=== PATIENT | male | born 1935 | race Caucasian/White ===

== ENCOUNTER → 2017-01-26 | Outpatient (CLI) | payer MEDICARE, OTHER ==
[2017-01-26 10:39] LABS: HEMATOCRIT 41.3 % (37.9-51.0); HEMOGLOBIN 13.8 g/dL (13.5-17.0); HGB HCT DIFFERENCE 0.1; MEAN CORPUSCULAR HEMOGLOBIN 30.2 pg (27.0-33.4); MEAN CORPUSCULAR HGB CONC 33.4 g/dL (32.0-36.0); MEAN CORPUSCULAR VOLUME 90 fl (80-97); RED BLOOD COUNT 4.56 10^6/uL (4.35-5.55); RED CELL DISTRIBUTION WIDTH 13.8 % (11.5-14.0); WHITE BLOOD COUNT 5.6 10^3/uL (4.0-10.5)
[2017-01-26 11:03] LABS: ANION GAP 14 (5-19); BLOOD UREA NITROGEN 13 mg/dL (7-20); CALCIUM 9.3 mg/dL (8.4-10.2); CARBON DIOXIDE 26 mmol/L (22-30); CHLORIDE 103 mmol/L (98-107); CREATININE RESULT 1.15 mg/dL (0.52-1.25); GLUCOSE 94 mg/dL (75-110); POTASSIUM 3.9 mmol/L (3.6-5.0); SODIUM 142.6 mmol/L (137-145)
[2017-01-27 11:02] LABS: APPEARANCE,URINE CLEAR; BILIRUBIN,URINE NEGATIVE (NEGATIVE); GLUCOSE, URINE NEGATIVE (NEGATIVE); KETONES,URINE NEGATIVE (NEGATIVE); LEUKOCYTE ESTERASE,URINE NEGATIVE (NEGATIVE); NITRITE,URINE NEGATIVE (NEGATIVE); PROTEIN,URINE NEGATIVE (NEGATIVE); UROBILINOGEN,URINE NEGATIVE mg/dL (<2.0)
== END ==
LOC: OD 09:35
PROVIDERS: ATTEND Internal Medicine
DX: E03.9 Hypothyroidism, unspecified (principal); N18.3 Chronic kidney disease, stage 3 (moderate)
CPT/HCPCS: 36415; 80048; 81001; 84443; 85027

== ENCOUNTER → 2017-06-16 | Outpatient (CLI) | payer MEDICARE, OTHER | LOC: OD 08:32 | PROVIDERS: ATTEND Internal Medicine | DX: E03.9 Hypothyroidism, unspecified (principal) | CPT/HCPCS: 36415; 84443 ==

== ENCOUNTER → 2018-01-25 | Outpatient (CLI) | payer MEDICARE, OTHER ==
[2018-01-25 09:19] LABS: HEMATOCRIT 40.1 % (37.9-51.0); HEMOGLOBIN 13.7 g/dL (13.5-17.0); MEAN CORPUSCULAR HEMOGLOBIN 31.4 pg (27.0-33.4); MEAN CORPUSCULAR VOLUME 92 fl (80-97); PLATELET COUNT 194 10^3/uL (150-450); RED BLOOD COUNT 4.36 10^6/uL (4.35-5.55); RED CELL DISTRIBUTION WIDTH 13.6 % (11.5-14.0)
[2018-01-25 09:37] LABS: ANION GAP 10 (5-19); BLOOD UREA NITROGEN 18 mg/dL (7-20); CALCIUM 9.1 mg/dL (8.4-10.2); CARBON DIOXIDE 31 mmol/L (22-30); CHLORIDE 103 mmol/L (98-107); GLUCOSE 101 mg/dL (75-110); POTASSIUM 4.1 mmol/L (3.6-5.0); SODIUM 143.9 mmol/L (137-145)
== END ==
LOC: OD 08:49
PROVIDERS: ATTEND Internal Medicine Nephrology
DX: I12.9 Hypertensive chronic kidney disease with stage 1 through stage 4 chronic kidney disease, or unspecified chronic kidney disease (principal); N18.3 Chronic kidney disease, stage 3 (moderate)
CPT/HCPCS: 36415; 80048; 85027

== ENCOUNTER → 2018-04-16 | Outpatient (CLI) | payer MEDICARE, OTHER ==
[2018-04-16 11:15] LABS: ABSOLUTE EOSINOPHILS # (AUTO) 0.1 10^3/uL (0.0-0.6); ABSOLUTE LYMPHOCYTES (AUTO) 1.3 10^3/uL (0.5-4.7); ABSOLUTE NEUT (AUTO) 7.6 10^3/uL (1.7-8.2); BASOPHILS % (AUTO) 0.3 % (0-2); EOSINOPHILS % (AUTO) 0.8 % (0-6); HEMATOCRIT 39.5 % (37.9-51.0); HEMOGLOBIN 13.4 g/dL (13.5-17.0); LYMPHOCYTES % (AUTO) 12.6 % (13-45); MEAN CORPUSCULAR HEMOGLOBIN 31.5 pg (27.0-33.4); MEAN CORPUSCULAR VOLUME 92 fl (80-97); MONOCYTES % (AUTO) 9.7 % (3-13); PLATELET COUNT 310 10^3/uL (150-450); RED BLOOD COUNT 4.27 10^6/uL (4.35-5.55); RED CELL DISTRIBUTION WIDTH 14.1 % (11.5-14.0); SEGMENTED NEUTROPHILS % (AUTO) 76.6 % (42-78); TOTAL CELLS COUNTED % (AUTO) 100 %
[2018-04-16 11:40] LABS: ALANINE AMINOTRANSFERASE 68 U/L (21-72); ALBUMIN 3.7 g/dL (3.5-5.0); ALKALINE PHOSPHATASE 70 U/L (38-126); ANION GAP 12 (5-19); ASPARTATE AMINO TRANSFERASE 110 U/L (17-59); BILIRUBIN,DIRECT 0.5 mg/dL (0.0-0.4); BILIRUBIN,TOTAL 0.7 mg/dL (0.2-1.3); BLOOD UREA NITROGEN 37 mg/dL (7-20); CALCIUM 9.1 mg/dL (8.4-10.2); CARBON DIOXIDE 30 mmol/L (22-30); CHLORIDE 98 mmol/L (98-107); CHOLESTEROL 169.18 mg/dL (0-200); GLUCOSE 97 mg/dL (75-110); POTASSIUM 3.8 mmol/L (3.6-5.0); SODIUM 140.1 mmol/L (137-145); TOTAL PROTEIN 6.7 g/dL (6.3-8.2); TRIGLYCERIDES 80 mg/dL (<150)
[2018-04-16 11:51] LABS: DIRECT LDL 109 mg/dL (<100)
[2018-04-16 15:06] LABS: AMORPHOUS SEDIMENT,URINE TRACE /HPF; APPEARANCE,URINE CLOUDY; BILIRUBIN,URINE NEGATIVE (NEGATIVE); CALCIUM OXALATE CRYSTALS,URINE RARE /HPF; GLUCOSE, URINE NEGATIVE (NEGATIVE); KETONES,URINE TRACE mg/dL (NEGATIVE); LEUKOCYTE ESTERASE,URINE MODERATE (NEGATIVE); NITRITE,URINE NEGATIVE (NEGATIVE); PROTEIN,URINE 100 mg/dL (NEGATIVE); URINE SPECIFIC GRAVITY 1.023; UROBILINOGEN,URINE NEGATIVE mg/dL (<2.0)
[2018-04-16 15:12] LABS: COLOR,URINE YELLOW
== END ==
LOC: OD 10:02
PROVIDERS: ATTEND Internal Medicine
DX: N39.0 Urinary tract infection, site not specified (principal); R73.9 Hyperglycemia, unspecified; E78.5 Hyperlipidemia, unspecified; I10 Essential (primary) hypertension; R53.83 Other fatigue; R41.82 Altered mental status, unspecified
CPT/HCPCS: 36415; 80053; 80061; 81001; 82607; 83036; 84153; 84443; 85025; 86592; 87086; 87088; 87186

== ENCOUNTER 2018-06-21 18:00 | Emergency (ER) | payer MEDICARE ==
[2018-06-21 18:16] VITALS: BP 133/76
--- NOTE | 2018-06-21 18:47 | ER Document Report ---
ED Medical Screen (RME) - General Chief Complaint: Leg Swelling Stated Complaint: LEG SWELLING Time Seen by Provider: 06/21/18 18:44 Notes: 83 years old male with mild dementia, chronic lower leg edema on 40 mg of Lasix twice a day, presents today with bilateral increasing lower leg swelling with erythema. But no fever chills. Denies any chest pain shortness of breath. Denies any other constitutional symptoms. Bilateral lower leg-4+ pitting edema with diffuse erythema noted which is warm and tender to touch. Bilateral lower extremity venous Dopplers were negative for any DVT. Given verbal report TRAVEL OUTSIDE OF THE [place] IN LAST 30 DAYS: No - Related Data Allergies/Adverse Reactions: No Known Allergies Allergy (Verified 06/21/18 18:01) Past Medical History - Social History Chew tobacco use (# tins/day): No Drug Abuse: None - Past Medical History Cardiac Medical History: Reports: Hx Hypertension - MEDICATED Denies: Hx Heart Attack Pulmonary Medical History: Denies: Hx Asthma Neurological Medical History: Reports: Hx Migraine - cluster GRAHAM. Denies: Hx Cerebrovascular Accident, Hx Seizures Renal/ Medical History: Denies: Hx Peritoneal Dialysis GI Medical History: Reports: Hx Gastroesophageal Reflux Disease. Denies: Hx Hepatitis, Hx Hiatal Hernia, Hx Ulcer Psychiatric Medical History: Reports: Hx Depression Infectious Medical History: Denies: Hx Hepatitis Past Surgical History: Reports: Hx Orthopedic Surgery - knee. Denies: Hx Open Heart Surgery, Hx Pacemaker - Immunizations Hx Diphtheria, Pertussis, Tetanus Vaccination: No Physical Exam - Vital signs Vitals: Temp Pulse Resp BP Pulse Ox 97.8 F 81 16 133/76 H 94 06/21/18 18:12 06/21/18 18:12 06/21/18 18:12 06/21/18 18:12 06/21/18 18:12 Course - Vital Signs Vital signs: Temp Pulse Resp BP Pulse Ox 97.8 F 81 16 133/76 H 94 06/21/18 18:12 06/21/18 18:12 06/21/18 18:12 06/21/18 18:12 06/21/18 18:12 Doctor's Discharge - Discharge Referrals: CARIN MARIA MD [Primary Care Provider] - Follow up as needed
--- NOTE | 2018-06-21 20:44 | RADIOLOGY REPORT (SQ) ---
EXAM DESCRIPTION: VENOUS BILATERAL LOWER COMPLETED DATE/TIME: 06/21/2018 8:26 pm REASON FOR STUDY: Bilateral leg swelling COMPARISON: None. TECHNIQUE: Dynamic and static castro scale and color images acquired of both lower extremity venous sy stems. Selected spectral images acquired with additional compression and augmentation maneuvers. Imag es stored on PACS. LIMITATIONS: None. FINDINGS: RIGHT LEG COMMON FEMORAL AND FEMORAL: Normal phasicity, compression and augmentation. No visualized echogenic m aterial on castro scale. No defects on color images. POPLITEAL: Normal compression and augmentation. No visualized echogenic material on castro scale. No de fects on color images. CALF VESSELS: Normal compression and augmentation. No visualized echogenic material on castro scale. No defects on color image. GSV AND SSV: Normal compression. No visualized echogenic material on castro scale. No defects on color images. ANY DEEP VENOUS INSUFFICIENCY: Not evaluated. ANY EVIDENCE OF POPLITEAL CYST: No. OTHER: No other significant finding. LEFT LEG COMMON FEMORAL AND FEMORAL: Normal phasicity, compression and augmentation. No visualized echogenic m aterial on castro scale. No defects on color images. POPLITEAL: Normal compression and augmentation. No visualized echogenic material on castro scale. No de fects on color images. CALF VESSELS: Normal compression and augmentation. No visualized echogenic material on castro scale. No defects on color images. GSV AND SSV: Normal compression. No visualized echogenic material on castro scale. No defects on color images. ANY DEEP VENOUS INSUFFICIENCY: Not evaluated. ANY EVIDENCE POPLITEAL CYST: No. OTHER: No other significant finding. IMPRESSION: NO EVIDENCE DVT OR SVT IN EITHER LEG. TECHNICAL DOCUMENTATION: JOB ID: [id number] [employer]- All Rights Reserved Reading location - IP/workstation name: [email or web address]
== END 2018-06-21 22:00 | disposition left against medical advice (07) ==
LOC: ER 18:00
DX: M79.89 Other specified soft tissue disorders (principal); F03.90 Unspecified dementia, unspecified severity, without behavioral disturbance, psychotic disturbance, mood disturbance, and anxiety; I10 Essential (primary) hypertension
CPT/HCPCS: 93970; 99281

== ENCOUNTER 2018-06-24 00:01 | Emergency (ER) | payer MEDICARE ==
[2018-06-24 00:15] VITALS: BP 130/86
[2018-06-24] MEDS ORDERED: CEFAZOLIN 2 GM/D5W RTU 2 GM/50 ML RTUPB IV ONE (00:37)
[2018-06-24] MEDS ORDERED: HYDROXYZINE HCL 10 MG TABLET PO ONE (00:38)
--- NOTE | 2018-06-24 00:39 | ER Document Report ---
ED General - General Chief Complaint: Leg Swelling Stated Complaint: LEG SWELLING Time Seen by Provider: 06/24/18 00:28 Notes: Patient is a 83-year-old male with history of peripheral edema that presents to the emergency department for chief complaint of leg swelling, and itching. Patient and the patient's daughters at bedside or providing history. Patient's been having worse swelling in his lower extremities over the last few days, he does have chronic lower extremity edema, and is on Lasix 40 mg twice daily which she has been taking. He was seen in the emergency department and had duplex imaging 2 days ago, that were negative for DVT. However today we will brought him in as the itching in his lower extremities, to the point where he scratched through the skin, causing some bleeding. They did try Benadryl at home which did not improve it. He denies having any shortness of breath, chest pain, fevers, chills, night sweats, nausea, vomiting or abdominal pain. The daughter states they are concerned of a possible infection and that is why they brought him back to the emergency department. Past Medical History: Hypertension, hypothyroidism, chronic peripheral edema GERD Past Surgical History: Total knee arthroplasty Social History: Denies current tobacco, alcohol or drug use Family History: Reviewed and noncontributory for presenting illness Allergies: Reviewed, see documented allergy list. REVIEW OF SYSTEMS: Unless otherwise stated in this report the patient's positive and negative responses for review of systems for constitutional, eyes, ENT, cardiovascular, respiratory, gastrointestinal, neurological, genitourinary, musculoskeletal, and integumentary systems and related systems to the presenting problem are either as stated in the HPI or were not pertinent or were negative for the symptoms and/or complaints related to the presenting medical problem. PHYSICAL EXAMINATION: Vital signs reviewed, nursing noted reviewed. GENERAL: Elderly male, no acute distress HEAD: Atraumatic, normocephalic. EYES: Eyes appear normal, extraocular movements intact, sclera anicteric, conjunctiva are normal. ENT: nares patent, oropharynx clear without exudates. Moist mucous membranes. NECK: Normal range of motion, supple without lymphadenopathy LUNGS: Breath sounds clear to auscultation bilaterally and equal. No wheezes rales or rhonchi. HEART: Regular rate and rhythm without murmurs ABDOMEN: Soft, nontender, normoactive bowel sounds. No rebound, guarding, or rigidity. No masses appreciated. EXTREMITIES: Nontender, good range of motion, 3+ pitting edema to the proximal tibias, there is noted stasis dermatitis, there are breaks in the skin to the medial aspect of the right lower extremity, with surrounding erythema, possible early cellulitis. No tenderness to palpation. NEUROLOGICAL: No focal neurological deficits. Moves all extremities spontaneously Motor and sensory grossly intact on exam. PSYCH: Normal mood, normal affect. SKIN: Warm, Dry, normal turgor, no rashes or lesions noted on exposed skin TRAVEL OUTSIDE OF THE [place] IN LAST 30 DAYS: No - Related Data Allergies/Adverse Reactions: No Known Allergies Allergy (Verified 06/24/18 01:50) Past Medical History - Social History Smoking Status: Never Smoker Family History: Reviewed & Not Pertinent Patient has suicidal ideation: No Patient has homicidal ideation: No - Past Medical History Cardiac Medical History: Reports: Hx Hypertension - MEDICATED Denies: Hx Heart Attack Pulmonary Medical History: Denies: Hx Asthma Neurological Medical History: Reports: Hx Migraine - cluster GRAHAM. Denies: Hx Cerebrovascular Accident, Hx Seizures Renal/ Medical History: Denies: Hx Peritoneal Dialysis GI Medical History: Reports: Hx Gastroesophageal Reflux Disease. Denies: Hx Hepatitis, Hx Hiatal Hernia, Hx Ulcer Psychiatric Medical History: Reports: Hx Depression Infectious Medical History: Denies: Hx Hepatitis Past Surgical History: Reports: Hx Orthopedic Surgery - knee. Denies: Hx Open Heart Surgery, Hx Pacemaker - Immunizations Hx Diphtheria, Pertussis, Tetanus Vaccination: No Physical Exam - Vital signs Vitals: Temp Pulse Resp BP Pulse Ox 97.7 F 80 22 H 130/86 H 96 06/24/18 00:13 06/24/18 00:13 06/24/18 00:13 06/24/18 00:13 06/24/18 00:13 Course - Re-evaluation Re-evalutation: Patient seen and examined vital signs reviewed. Laboratory data and imaging were ordered as appropriate for the patient's presenting symptoms and complaint, with consideration of any critical or life threatening conditions that may be associated with their obtained history and exam as noted above. Patient was treated with IV Ancef, 2 g, and given Atarax for itching. Results were reviewed when available and demonstrated no leukocytosis, mild anemia that appears to be chronic based on prior labs, mild hyperkalemia, likely from the Lasix use, encouraged to take increased potassium in the diet The patient was re-evaluated and was still complaining of itching, we did apply NEIL hose as this will help prevent the patient from excoriating himself, and may help with some of his peripheral edema Evaluation was most consistent with peripheral edema, possible early cellulitis , will discharge the patient home on Keflex for 7 days, and Atarax for itching, as well as hydrocortisone cream to apply twice daily if needed. Results were discussed with the patient at this point, after careful consideration I feel that that patient can be discharged from the emergency department, the patient was educated treatments and reasons to return to the emergency department based on their presumed diagnosis as noted above, they were advised to followup with a primary care physician in 2-3 days. Patient was agreeable to plan of care. *Note is created using voice recognition software and may contain spelling, syntax or grammatical errors. Laboratory 06/24/18 06/24/18 00:40 00:40 WBC 8.8 RBC 3.94 L Hgb 12.1 L Hct 35.8 L MCV 91 MCH 30.8 MCHC 33.8 RDW 14.6 H Plt Count 312 Seg Neutrophils % 55.7 Lymphocytes % 18.1 Monocytes % 10.7 Eosinophils % 14.3 H Basophils % 1.2 Absolute Neutrophils 4.9 Absolute Lymphocytes 1.6 Absolute Monocytes 0.9 Absolute Eosinophils 1.3 H Absolute Basophils 0.1 Sodium 135.1 L Potassium 3.2 L Chloride 96 L Carbon Dioxide 32 H Anion Gap 7 BUN 16 Creatinine 1.08 Est GFR ( Amer) > 60 Est GFR (Non-Af Amer) > 60 Glucose 101 Calcium 8.7 - Vital Signs Vital signs: Temp Pulse Resp BP Pulse Ox 97.7 F 80 22 H 130/86 H 96 06/24/18 00:13 06/24/18 00:13 06/24/18 00:13 06/24/18 00:13 06/24/18 00:13 - Laboratory Result Diagrams: 06/24/18 00:40 06/24/18 00:40 Laboratory results interpreted by me: 06/24/18 06/24/18 00:40 00:40 RBC 3.94 L Hgb 12.1 L Hct 35.8 L RDW 14.6 H Eosinophils % 14.3 H Absolute Eosinophils 1.3 H Sodium 135.1 L Potassium 3.2 L Chloride 96 L Carbon Dioxide 32 H Discharge - Discharge Clinical Impression: Peripheral edema, Hypokalemia Cellulitis Qualifiers: Site of cellulitis: extremity Site of cellulitis of extremity: lower extremity Laterality: unspecified laterality Qualified Code(s): L03.119 - Cellulitis of unspecified part of limb Condition: Stable Disposition: HOME, SELF-CARE Instructions: Cellulitis ([facility]), Edema, Peripheral ([facility]) Additional Instructions: Please return to the emergency department if you have any worsening, or concern of your symptoms. Please return to the emergency department if you develop chest pain, difficulty breathing, severe abdominal pain, or ongoing vomiting. Please follow-up with your primary care physician in 2-3 days and any other recommended physicians. If prescribed, take all medications as directed. If you have any questions or concerns do not hesitate to return the emergency department for evaluation. Prescriptions: Cephalexin Monohydrate [Keflex 500 mg Capsule] 500 mg PO TID 7 Days #21 capsule Hydrocortisone/Oatmeal/Aloe/E [Hydrocortisone 1% Cream] 1 applic TP BID #1 tube Hydroxyzine HCl [Atarax 25 mg Tablet] 1 tab PO Q8 PRN #25 tablet PRN Reason: Referrals: CARIN MARIA MD [Primary Care Provider] - Follow up as needed
[2018-06-24 00:59] LABS: ABSOLUTE BASOPHILS # (AUTO) 0.1 10^3/uL (0.0-0.2); ABSOLUTE EOSINOPHILS # (AUTO) 1.3 10^3/uL (0.0-0.6); ABSOLUTE LYMPHOCYTES (AUTO) 1.6 10^3/uL (0.5-4.7); ABSOLUTE MONOCYTES (AUTO) 0.9 10^3/uL (0.1-1.4); ABSOLUTE NEUT (AUTO) 4.9 10^3/uL (1.7-8.2); BASOPHILS % (AUTO) 1.2 % (0-2); EOSINOPHILS % (AUTO) 14.3 % (0-6); HEMATOCRIT 35.8 % (37.9-51.0); HEMOGLOBIN 12.1 g/dL (13.5-17.0); LYMPHOCYTES % (AUTO) 18.1 % (13-45); MEAN CORPUSCULAR HEMOGLOBIN 30.8 pg (27.0-33.4); MEAN CORPUSCULAR HGB CONC 33.8 g/dL (32.0-36.0); MEAN CORPUSCULAR VOLUME 91 fl (80-97); MONOCYTES % (AUTO) 10.7 % (3-13); PLATELET COUNT 312 10^3/uL (150-450); RED BLOOD COUNT 3.94 10^6/uL (4.35-5.55); RED CELL DISTRIBUTION WIDTH 14.6 % (11.5-14.0); SEGMENTED NEUTROPHILS % (AUTO) 55.7 % (42-78); TOTAL CELLS COUNTED % (AUTO) 100 %; WHITE BLOOD COUNT 8.8 10^3/uL (4.0-10.5)
[2018-06-24 01:08] LABS: ANION GAP 7 (5-19); BLOOD UREA NITROGEN 16 mg/dL (7-20); CALCIUM 8.7 mg/dL (8.4-10.2); CARBON DIOXIDE 32 mmol/L (22-30); CHLORIDE 96 mmol/L (98-107); GLUCOSE 101 mg/dL (75-110); POTASSIUM 3.2 mmol/L (3.6-5.0); SODIUM 135.1 mmol/L (137-145)
== END 2018-06-24 01:50 | disposition home or self-care (01) ==
LOC: ER 00:01
DX: R60.0 Localized edema (principal); L03.119 Cellulitis of unspecified part of limb; E87.6 Hypokalemia; M79.89 Other specified soft tissue disorders; L29.9 Pruritus, unspecified; I10 Essential (primary) hypertension; Z79.899 Other long term (current) drug therapy
CPT/HCPCS: 99283; 96365; 36415; 85025; 80048; A9270; J0690

== ENCOUNTER 2018-07-03 13:45 | Emergency (ER) | payer MEDICARE, OTHER ==
--- NOTE | 2018-07-03 14:02 | ER Document Report ---
ED General - General Stated Complaint: IVC Time Seen by Provider: 07/03/18 14:01 Notes: Patient is a 83-year-old male that presents to the emergency department for chief complaint of argumentative behavior, and possible suicidal ideation. Patient was brought to the emergency department after apparently giving threats to burn his house down, and stating he wanted to kill himself. This is reported by family. On my history taking with the patient, he stated that he "did nothing wrong" and that he wanted to go home. He denies any complaints of pain at this time, denies any complaint of recent illness, nausea, vomiting, abdominal pain, chest pain, shortness of breath or difficulty breathing. Patient has been exhibiting signs of dementia more recently, but does not carry a formal diagnosis. Past Medical History: Hypertension, hypothyroidism, chronic peripheral edema GERD, chf Past Surgical History: Total knee arthroplasty Social History: Denies current tobacco, alcohol or drug use Family History: Reviewed and noncontributory for presenting illness Allergies: Reviewed, see documented allergy list. REVIEW OF SYSTEMS: Unless otherwise stated in this report the patient's positive and negative responses for review of systems for constitutional, eyes, ENT, cardiovascular, respiratory, gastrointestinal, neurological, genitourinary, musculoskeletal, and integumentary systems and related systems to the presenting problem are either as stated in the HPI or were not pertinent or were negative for the symptoms and/or complaints related to the presenting medical problem. PHYSICAL EXAMINATION: Vital signs reviewed, nursing noted reviewed. GENERAL: Well-appearing, well-nourished and in no acute distress. HEAD: Atraumatic, normocephalic. EYES: Eyes appear normal, extraocular movements intact, sclera anicteric, conjunctiva are normal. ENT: nares patent, oropharynx clear without exudates. Moist mucous membranes. NECK: Normal range of motion, supple without lymphadenopathy LUNGS: Breath sounds clear to auscultation bilaterally and equal. No wheezes rales or rhonchi. HEART: Regular rate and rhythm without murmurs ABDOMEN: Soft, nontender, normoactive bowel sounds. No rebound, guarding, or rigidity. No masses appreciated. EXTREMITIES: Nontender, good range of motion, no pitting or edema. NEUROLOGICAL: No focal neurological deficits. Moves all extremities spontaneously Motor and sensory grossly intact on exam. PSYCH: Normal mood, normal affect. SKIN: Warm, Dry, normal turgor, no rashes or lesions noted on exposed skin TRAVEL OUTSIDE OF THE [place] IN LAST 30 DAYS: No - Related Data Allergies/Adverse Reactions: No Known Allergies Allergy (Verified 06/24/18 01:50) Past Medical History - Social History Smoking Status: Never Smoker Family History: Reviewed & Not Pertinent - Past Medical History Cardiac Medical History: Reports: Hx Hypertension - MEDICATED Denies: Hx Heart Attack Pulmonary Medical History: Denies: Hx Asthma Neurological Medical History: Reports: Hx Migraine - cluster GRAHAM. Denies: Hx Cerebrovascular Accident, Hx Seizures Renal/ Medical History: Denies: Hx Peritoneal Dialysis GI Medical History: Reports: Hx Gastroesophageal Reflux Disease. Denies: Hx Hepatitis, Hx Hiatal Hernia, Hx Ulcer Psychiatric Medical History: Reports: Hx Depression Infectious Medical History: Denies: Hx Hepatitis Past Surgical History: Reports: Hx Orthopedic Surgery - knee. Denies: Hx Open Heart Surgery, Hx Pacemaker - Immunizations Hx Diphtheria, Pertussis, Tetanus Vaccination: No Physical Exam - Vital signs Vitals: Temp Pulse Resp BP Pulse Ox 98.2 F 95 18 127/65 H 93 07/03/18 17:44 07/03/18 17:44 07/03/18 17:44 07/03/18 17:44 07/03/18 17:44 Course - Re-evaluation Re-evalutation: Patient seen and examined, vital signs reviewed. Medical screening testing was ordered including bloodwork, EKG, and toxicology. Results of testing were reviewed. Testing demonstrated urinalysis positive for UTI, he also had a leukocytosis. Patient has been stable from a hemodynamic standpoint. We will treat the patient for urinary tract infection, with Augmentin, prior microbiology reviewed, and has grown Proteus in the past which is sensitive. This is likely contributing to the patient's encephalopathy, likely underlying dementia At this point I feel that the patient is medically cleared and can be further evaluated from a psychiatric standpoint for final disposition from the emergency department. Discussed with mental health team, and they recommended as needed risperidone twice daily as needed, Thorazine 25 mg x1, BuSpar twice daily, topical weekly 0.2 mg clonidine patch. Patient will be reevaluated in the morning, to determine disposition to see if he is improved and responded to medications that have been administered. Family has been updated with plan of care. - Vital Signs Vital signs: Temp Pulse Resp BP Pulse Ox 98.2 F 95 18 127/65 H 93 07/03/18 17:44 07/03/18 17:44 07/03/18 17:44 07/03/18 17:44 07/03/18 17:44 - Laboratory Result Diagrams: 07/03/18 15:05 07/03/18 15:05 Laboratory results interpreted by me: 07/03/18 07/03/18 07/03/18 15:05 15:05 15:05 WBC 15.7 H RDW 14.8 H Absolute Neutrophils 11.4 H Chloride 96 L Carbon Dioxide 33 H BUN 47 H Creatinine 1.45 H Est GFR ( Amer) 57 L Est GFR (Non-Af Amer) 47 L Direct Bilirubin 0.5 H Urine Blood SMALL H Ur Leukocyte Esterase LARGE H Salicylates 1.1 L Acetaminophen < 10 L - EKG Interpretation by Me Additional EKG results interpreted by me: EKG demonstrates sinus rhythm with a ventricular rate of 93 bpm, occasional PAC , presence of left anterior fascicular block, left axis deviation, QTC 470 ms, no evidence of acute ischemia, compared with prior EKG from 08/24/2015, without significant change. Discharge - Discharge Clinical Impression: Leukocytosis, Metabolic encephalopathy UTI (urinary tract infection) Qualifiers: Urinary tract infection type: site unspecified Hematuria presence: without hematuria Qualified Code(s): N39.0 - Urinary tract infection, site not specified Condition: Stable Referrals: CARIN MARIA MD [Primary Care Provider] - Follow up as needed
[2018-07-03 15:20] LABS: ABSOLUTE BASOPHILS # (AUTO) 0.1 10^3/uL (0.0-0.2); ABSOLUTE MONOCYTES (AUTO) 1.3 10^3/uL (0.1-1.4); ABSOLUTE NEUT (AUTO) 11.4 10^3/uL (1.7-8.2); BASOPHILS % (AUTO) 0.4 % (0-2); HEMATOCRIT 42.3 % (37.9-51.0); HEMOGLOBIN 14.1 g/dL (13.5-17.0); MEAN CORPUSCULAR HEMOGLOBIN 29.9 pg (27.0-33.4); MEAN CORPUSCULAR HGB CONC 33.4 g/dL (32.0-36.0); MEAN CORPUSCULAR VOLUME 90 fl (80-97); PLATELET COUNT 426 10^3/uL (150-450); RED BLOOD COUNT 4.72 10^6/uL (4.35-5.55); RED CELL DISTRIBUTION WIDTH 14.8 % (11.5-14.0); SEGMENTED NEUTROPHILS % (AUTO) 72.6 % (42-78); TOTAL CELLS COUNTED % (AUTO) 100 %; WHITE BLOOD COUNT 15.7 10^3/uL (4.0-10.5)
[2018-07-03] MEDS ORDERED: HALOPERIDOL LACTATE INJ 5 MG/1 ML VIAL IM ONE (15:26)
[2018-07-03] MEDS ORDERED: OLANZAPINE 5 MG TAB.RAPDIS PO ONE (15:27)
[2018-07-03] MEDS ORDERED: ONDANSETRON 4 MG TAB.RAPDIS PO PRN (15:53)
[2018-07-03 15:56] LABS: APPEARANCE,URINE CLOUDY; BILIRUBIN,URINE NEGATIVE (NEGATIVE); COLOR,URINE YELLOW; GLUCOSE, URINE NEGATIVE (NEGATIVE); KETONES,URINE NEGATIVE (NEGATIVE); LEUKOCYTE ESTERASE,URINE LARGE (NEGATIVE); NITRITE,URINE NEGATIVE (NEGATIVE); PROTEIN,URINE NEGATIVE (NEGATIVE); URINE SPECIFIC GRAVITY 1.015; UROBILINOGEN,URINE NEGATIVE mg/dL (<2.0)
[2018-07-03 15:58] LABS: ALANINE AMINOTRANSFERASE 30 U/L (21-72); ALBUMIN 4.2 g/dL (3.5-5.0); ALKALINE PHOSPHATASE 92 U/L (38-126); ANION GAP 9 (5-19); ASPARTATE AMINO TRANSFERASE 26 U/L (17-59); BILIRUBIN,DIRECT 0.5 mg/dL (0.0-0.4); BILIRUBIN,TOTAL 0.9 mg/dL (0.2-1.3); BLOOD UREA NITROGEN 47 mg/dL (7-20); CALCIUM 9.8 mg/dL (8.4-10.2); CARBON DIOXIDE 33 mmol/L (22-30); CHLORIDE 96 mmol/L (98-107); GLUCOSE 105 mg/dL (75-110); POTASSIUM 4.7 mmol/L (3.6-5.0); SALICYLATE 1.1 mg/dL (2.0-20.0); TOTAL PROTEIN 7.7 g/dL (6.3-8.2)
[2018-07-03 16:02] LABS: ACETAMINOPHEN < 10 ug/mL (10-30); ALCOHOL < 10 mg/dL (NONE DETECTED)
[2018-07-03 16:06] LABS: URINE AMPHETAMINES SCREEN NEGATIVE; URINE BARBITURATES SCREEN NEGATIVE; URINE BENZODIAZEPINES SCREEN NEGATIVE; URINE COCAINE SCREEN NEGATIVE; URINE MARIJUANA (THC) SCREEN NEGATIVE; URINE METHADONE SCREEN NEGATIVE; URINE PHENCYCLIDINE SCREEN NEGATIVE
--- NOTE | 2018-07-03 16:07 | RADIOLOGY REPORT (SQ) ---
EXAM DESCRIPTION: CT HEAD WITHOUT COMPLETED DATE/TIME: 07/03/2018 3:50 pm REASON FOR STUDY: altered mental status COMPARISON: None. TECHNIQUE: Axial images acquired through the brain without intravenous contrast. Images reviewed wi th bone, brain and subdural windows. Images stored on PACS. All CT scanners at this facility use dose modulation, iterative reconstruction, and/or weight based d osing when appropriate to reduce radiation dose to as low as reasonably achievable (ALARA). [facility]: Dose Right [facility]: [employer] [facility]: Dose Right [facility]: Teradose 4D [facility]: [employer] RADIATION DOSE: CT Rad equipment meets quality standard of care and radiation dose reduction techniq ues were employed. CTDIvol: 53.2 mGy. DLP: 1044 mGy-cm. mGy. LIMITATIONS: None. FINDINGS: VENTRICLES: Slight prominence, age related parenchymal involution. No hemorrhage. CEREBRUM: No hemorrhage or mass or shift. Suspect mild small vessel disease. CEREBELLUM: No mass effect. No hemorrhage. No alteration of density. No evidence for acute infarct ion. EXTRAAXIAL SPACES: No fluid collections. ORBITS AND GLOBE: Symmetrical contour of the globes. CALVARIUM: No depressed skull fracture. PARANASAL SINUSES: No air-fluid level. SOFT TISSUES: No hematoma. IMPRESSION: No acute intracranial abnormality. No suggestion of recent CVA. Mild chronic changes. TECHNICAL DOCUMENTATION: JOB ID: [id number] [id number]: Final reports with documentation of one or more dose reduction techniques (e.g., Automate d exposure control, adjustment of the mA and/or kV according to patient size, use of iterative recons truction technique) 2010 [employer]- All Rights Reserved Reading location - IP/workstation name: [email or web address]
[2018-07-03] MEDS ORDERED: LORAZEPAM INJ 2 MG/1 ML VIAL IM ONE (16:18)
[2018-07-03] MEDS ORDERED: DIPHENHYDRAMINE HCL 50 MG/ML VIAL IM ONE (16:18)
[2018-07-03] MEDS ORDERED: ZIPRASIDONE MESYLATE INJ/PF 20 MG SDV IM ONE (16:45)
[2018-07-03] MEDS ORDERED: AMOXICILLIN TR/POT CLAVULANATE 500-125 MG TAB PO ONE (16:48)
[2018-07-03] MEDS ORDERED: CLONIDINE 0.2 MG/24 HR PATCH.TDWK TD ONE (17:17)
[2018-07-03] MEDS ORDERED: CHLORPROMAZINE HCL 25 MG TABLET PO ONE (17:19)
[2018-07-03] MEDS ORDERED: RISPERIDONE 0.25 MG TABLET PO PRN (17:25)
[2018-07-03] MEDS ORDERED: CLONIDINE 0.2 MG/24 HR PATCH.TDWK ONE (17:45)
[2018-07-03] MEDS: BUSPIRONE HCL 10 MG TABLET PO SCH (17:54)
[2018-07-03] MEDS: PREDNISONE 10 MG TABLET PO SCH (17:54)
[2018-07-03] MEDS: AMOXICILLIN TR/POT CLAVULANATE 500-125 MG TAB PO SCH (17:55)
[2018-07-03] MEDS ORDERED: RISPERIDONE 0.25 MG TABLET PO SCH (18:00)
--- NOTE | 2018-07-03 20:21 | EKG REPORT ---
SEVERITY:- ABNORMAL ECG - SINUS RHYTHM ATRIAL PREMATURE COMPLEX LEFT ANTERIOR FASCICULAR BLOCK BORDERLINE PROLONGED QT INTERVAL : Confirmed by: Julee Casillas MD 03-Jul-2018 20:20:53
[2018-07-04] MEDS ORDERED: HYDROXYZINE PAMOATE 25 MG CAPSULE PO ONE (05:04)
[2018-07-04] MEDS ORDERED: LEVOTHYROXINE SODIUM 0.088 MG TABLET PO SCH (06:00)
[2018-07-04] MEDS ORDERED: LANSOPRAZOLE 15 MG TAB.RAP.DR PO SCH (06:00)
[2018-07-04] MEDS: PREDNISONE 10 MG TABLET PO SCH (09:55)
[2018-07-04] MEDS: AMOXICILLIN TR/POT CLAVULANATE 500-125 MG TAB PO SCH (09:56)
[2018-07-04] MEDS: BUSPIRONE HCL 10 MG TABLET PO SCH (09:56)
[2018-07-04] MEDS ORDERED: FUROSEMIDE 40 MG TABLET PO SCH (10:00)
--- NOTE | 2018-07-04 10:41 | ER Document Report ---
Doctor's Note Notes: 07/04/18 10:39 Rounds: Chart reviewed and patient interviewed. Patient appears to be depressed , but it may be because he is confused. He says he does not understand why he is here and being held against his will. Review of his chart says that he was argumentative and yelling and had expressed some feelings of suicidal thoughts. His evaluation showed a possible UTI and has been started on Augmentin. He has some mild renal insufficiency with creatinine of 1.45. He has a white count of 15,700, but no signs of infection, other than the possible UTI. Otherwise, vital signs are all normal. Patient appears to be medically stable for transfer or discharge. Mckenzie Mccauley MD
[2018-07-04 14:14] VITALS: BP 124/76
== END 2018-07-04 14:38 | disposition home or self-care (01) ==
LOC: ER 13:45
DX: N39.0 Urinary tract infection, site not specified (principal); G93.41 Metabolic encephalopathy; D72.829 Elevated white blood cell count, unspecified; I10 Essential (primary) hypertension; I49.1 Atrial premature depolarization; I44.4 Left anterior fascicular block
CPT/HCPCS: 93005; 99285; 96372; 36415; 87086; 80307 ×4; 85025; 87088; 80053; 81001; 87186; 70450; 93010; A9270 ×13; J3490; J2060; J7512

== ENCOUNTER 2018-09-11 06:33 | Emergency (ER) | payer MEDICARE, OTHER ==
--- NOTE | 2018-09-11 07:09 | ER Document Report ---
ED General Pain - General Chief Complaint: Rib Pain Stated Complaint: FALL, RIGHT RIB AND BACK PAIN Time Seen by Provider: 09/11/18 06:53 Notes: This is an 83-year-old male to the emergency department for evaluation of pain in the right ribs. Patient does have some underlying dementia. Here with his daughter. Apparently patient fell about 2 days ago. Not on any blood thinners. Continues to complain about some pain on the right ribs. No difficulty breathing. No change in bowel or bladder function. No shortness of breath. No nausea or vomiting. No loss of consciousness. No other major issues at this time. TRAVEL OUTSIDE OF THE [place] IN LAST 30 DAYS: No - HPI Onset: Yesterday Severity: Mild Pain Level: 1 - Related Data Allergies/Adverse Reactions: No Known Allergies Allergy (Verified 06/24/18 01:50) Past Medical History - General Information source: Patient, Relative Cannot obtain history due to: Dementia - Social History Smoking Status: Unknown if Ever Smoked Frequency of alcohol use: None Drug Abuse: None Lives with: Family Family History: Reviewed & Not Pertinent Patient has suicidal ideation: No Patient has homicidal ideation: No - Past Medical History Cardiac Medical History: Reports: Hx Hypertension - MEDICATED Denies: Hx Heart Attack Pulmonary Medical History: Denies: Hx Asthma Neurological Medical History: Reports: Hx Migraine - cluster [place]. Denies: Hx Cerebrovascular Accident, Hx Seizures Renal/ Medical History: Denies: Hx Peritoneal Dialysis GI Medical History: Reports: Hx Gastroesophageal Reflux Disease. Denies: Hx Hepatitis, Hx Hiatal Hernia, Hx Ulcer Psychiatric Medical History: Reports: Hx Depression Infectious Medical History: Denies: Hx Hepatitis Past Surgical History: Reports: Hx Orthopedic Surgery - knee. Denies: Hx Open Heart Surgery, Hx Pacemaker - Immunizations Hx Diphtheria, Pertussis, Tetanus Vaccination: No Review of Systems - Review of Systems Constitutional: denies: Fever, Malaise, Weakness EENT: denies: Blurred vision, Difficulty swallowing, Mouth pain Cardiovascular: Other. denies: Chest pain, Palpitations, Heart racing Respiratory: denies: Cough - And on the right side of the chest/rib area, Hurts to breathe, Short of breath, Wheezing Gastrointestinal: denies: Abdominal pain, Diarrhea, Nausea, Vomiting Genitourinary: denies: Flank pain, Hematuria Musculoskeletal: See HPI. denies: Back pain, Joint pain, Muscle pain, Muscle stiffness Neurological/Psychological: Confusion, Dementia. denies: Weakness, Numbness Physical Exam - Vital signs Vitals: Temp Pulse Resp BP Pulse Ox 97.5 F 94 16 141/86 H 97 09/11/18 06:37 09/11/18 06:37 09/11/18 06:37 09/11/18 06:37 09/11/18 06:37 Interpretation: Normal - General General appearance: Appears well, Alert - HEENT Head: Normocephalic, Atraumatic Eyes: Normal Pupils: PERRL - Respiratory Respiratory status: No respiratory distress Chest status: Nontender Breath sounds: Normal Chest palpation: Normal - Cardiovascular Rhythm: Regular Heart sounds: Normal auscultation Murmur: No Notes: Mild pain to palpation on the right lateral chest wall - Abdominal Inspection: Normal Distension: No distension Bowel sounds: Normal Tenderness: Nontender Organomegaly: No organomegaly - Back Back: Normal, Nontender - Extremities General upper extremity: Normal inspection, Nontender, Normal color, Normal ROM , Normal temperature General lower extremity: Normal inspection, Nontender, Normal color, Normal ROM , Normal temperature, Normal weight bearing. No: Leticia's sign - Neurological Neuro grossly intact: Yes Cognition: Short term memory loss Orientation: AAOx4 Simone Coma Scale Eye Opening: Spontaneous [place] Coma Scale Verbal: Oriented [place] Coma Scale Motor: Obeys Commands [place] Coma Scale Total: 15 Speech: Normal Motor strength normal: LUE, RUE, LLE, RLE Sensory: Normal - Psychological Associated symptoms: Normal affect, Normal mood - Skin Skin Temperature: Warm Skin Moisture: Dry Skin Color: Normal Course - Re-evaluation Re-evalutation: 09/11/18 07:42 May have a small nondisplaced fracture in 1 of the right lateral lower ribs. Will prescribe some lidocaine patches. Will give a shot of Toradol. Advised Tylenol and Motrin for pain. Do not feel comfortable giving this elderly individual with dementia on antipsychotics anything stronger. Will DC at this time. 09/11/18 12:51 Ribs w/Chest X-Ray 09/11/18 07:08 IMPRESSION: Right ninth and 10th rib fractures, nondisplaced. No pneumothorax. - Vital Signs Vital signs: Temp Pulse Resp BP Pulse Ox 97.7 F 88 16 126/82 H 95 09/11/18 08:13 09/11/18 08:13 09/11/18 08:13 09/11/18 08:13 09/11/18 08:13 Discharge - Discharge Clinical Impression: Closed rib fracture Qualifiers: Encounter type: initial encounter Rib fracture type: single rib Laterality: right Qualified Code(s): S22.31XA - Fracture of one rib, right side, initial encounter for closed fracture Condition: Good Disposition: HOME, SELF-CARE Instructions: Rib Injuries and Fractures ([facility]) Prescriptions: Lidocaine [Lidoderm 5% (700 mg) Transdermal Patch] 1 patch TP DAILY 15 Days #15 adh..patch Referrals: CARIN MARIA MD [Primary Care Provider] - Follow up as needed
[2018-09-11] MEDS ORDERED: KETOROLAC TROMETHAMINE 60 MG/2 ML SDV IM ONE (07:39)
--- NOTE | 2018-09-11 07:49 | RADIOLOGY REPORT (SQ) ---
EXAM DESCRIPTION: XR RIBS UNILATERAL WITH CHEST COMPLETED DATE/TME: 09/11/2018 07:08 CLINICAL HISTORY: 83 years Male, fall., pain COMPARISON:08/21/2015 , [facility] NUMBER OF VIEWS/TECHNIQUE: 4 FINDINGS: Right ninth and 10th anterolateral rib fractures without significant displacement. Small blunting-fusion of the right costophrenic angle. No pneumothorax. Small left basilar atelectasis or scar. Atherosclerosis. Moderate scoliotic curvature.Degenerative disc disease. IMPRESSION: Right ninth and 10th rib fractures, nondisplaced. No pneumothorax.
[2018-09-11 08:14] VITALS: BP 126/82
== END 2018-09-11 08:14 | disposition home or self-care (01) ==
LOC: ER 06:33
DX: S22.41XA Multiple fractures of ribs, right side, initial encounter for closed fracture (principal); S27.9XXA Injury of unspecified intrathoracic organ, initial encounter; F03.90 Unspecified dementia, unspecified severity, without behavioral disturbance, psychotic disturbance, mood disturbance, and anxiety; I10 Essential (primary) hypertension
CPT/HCPCS: 99283; 96372; 71101; J1885